=== PATIENT | female | born 1995 | race Caucasian/White ===

== ENCOUNTER 2018-07-18 15:33 | Emergency (ER) | END 2018-07-18 17:02 | disposition home or self-care (01) ==

== ENCOUNTER 2018-08-25 20:14 | Emergency (ER) | END 2018-08-26 00:11 | disposition home or self-care (01) ==

== ENCOUNTER 2018-10-05 22:23 | Emergency (ER) | payer BC, OTHER ==
[~2018-10-05] VITALS: Ht 154.9 cm; Wt 58.8 kg
[~2018-10-05 22:23] MED LIST: DICY10CA40 PO; IBUP-1542 PO; ONDA4TAB14 PO; PREN1TAB49 PO
[2018-10-05 22:26] VITALS: Ht 154.9 cm; Wt 58.8 kg
--- NOTE | 2018-10-06 03:04 | ERD ---
ER Documentation Chief Complaint Chief Complaint sent from for K+ 6.5 c/o chest pain and sob. HPI 23-year-old female was states that she was sent here by her PCP to recheck her potassium levels. Patient had blood drawn 6 days ago, and her potassium level was noted to be 6.5. She got a call from her PCP shortly before 10 PM tonight, was told to get her potassium level rechecked tonight. Patient states that she has history of frequent chest wall pain that gets worse with inspiration. Denies weakness or dizziness. Denies shortness of breath. Denies abdominal pain, nausea, vomiting, or diarrhea. ROS All systems reviewed and are negative except as per history of present illness. Medications Home Meds Active Scripts Ondansetron (Ondansetron Odt) 4 Mg Tab.rapdis, 4 MG PO Q6H PRN for NAUSEA AND/OR VOMITING, #10 TAB Prov:KELVIN DANIEL PA-C 08/25/18 Dicyclomine HCl (Dicyclomine HCl) 10 Mg Capsule, 10 MG PO TID PRN for ABDOMINAL CRAMPING, #20 CAP Prov:KELVIN DANIEL PA-C 08/25/18 Ibuprofen* (Motrin*) 600 Mg Tab, 600 MG PO Q6, #30 TAB Prov:CECI SANCHEZ PA-C 07/18/18 Reported Medications Vits W-Ca,Fe,Fa(<1MG) () 1 Tab Tablet, 1 TAB PO DAILY 09/01/12 Allergies Allergies: Coded Allergies: No Known Allergy (Unverified , 08/30/13) PMhx/Soc History of Surgery: No Anesthesia Reaction: No Hx Neurological Disorder: No Hx Respiratory Disorders: No Hx Cardiac Disorders: No Hx Psychiatric Problems: No Hx Miscellaneous Medical Probl: Yes (anxiety ) Hx Alcohol Use: No Hx Substance Use: No Hx Tobacco Use: No Smoking Status: Never smoker Physical Exam Vitals Vital Signs Date Temp Pulse Resp B/P (MAP) Pulse Ox O2 O2 Flow FiO2 Time Delivery Rate 10/06/18 98.0 72 18 99/70 (80) 98 Room Air 04:17 10/05/18 97.0 84 20 114/62 100 22:26 (79) Physical Exam General: Well-developed, well-nourished, conscious and coherent, in no distress Skin: Warm and dry without rash, good texture and turgor Head: Normocephalic without evidence of trauma Chest: Normal AP diameter. Good expansion without retractions. Nontender. Lungs are clear to auscultate bilaterally with good tidal volume Heart: Regular rate and rhythm. No murmur, rub, or gallops heard Abdomen: Soft and nontender without masses, guarding, or rebound. Bowel sounds are active. No hepatosplenomegaly Extremities: Full range of motion. Good strength bilaterally. No erythema, ecchymosis, or edema. Peripheral pulses are intact. Sensation intact Neuro: Alert and oriented 4, GCS 15. Result Diagram: 10/06/18 0301 Results 24 hrs Laboratory Tests Test 10/06/18 03:01 Sodium Level 142 mmol/L Potassium Level 4.1 mmol/L Chloride Level 106 mmol/L Carbon Dioxide Level 26 mmol/L Anion Gap 10 Blood Urea Nitrogen 15 mg/dl Creatinine 0.64 mg/dl Est Glomerular Filtrat Rate mL/min > 60 mL/min Glucose Level 93 mg/dl Calcium Level 9.6 mg/dl Procedures/MDM Patient presents the ED for recheck of her potassium levels. EKG: Normal sinus rhythm, rate 72 bpm, normal intervals, normal axis. No ST segment elevation or depression. No peak T waves. EKG read by Dr. Copeland. Her potassium level today is 4.1, well within the normal range. I suspect the elevated potassium level from her previous blood test is due to hemolyzed blood samples. Patient is informed of the testing results. Patient appears well, stable for discharge and outpatient management. Medical decision making shared with patient and family. Education provided to patient and family. Patient and family expressed understanding of the plan. Medications on discharge: None. Follow-up: Primary care provider in 2-3 days or return to ED if worse. Disclaimer: Inadvertent spelling and grammatical errors are likely due to EHR/dictation software use and do not reflect on the overall quality of patient care. Also, please note that the electronic time recorded on this note does not necessarily reflect the actual time of the patient encounter. Departure Diagnosis: Primary Impression: Hyperkalemia Condition: Stable CROW HUGGINS NP Oct 06, 2018 03:04
[2018-10-06 04:17] VITALS: BP 99/70; PULSE 72; RESP 18
== END 2018-10-06 04:19 | disposition home or self-care (01) ==
LOC: FTE 22:23
DX: E87.5 Hyperkalemia (principal); R40.2412 Glasgow coma scale score 13-15, at arrival to emergency department
CPT/HCPCS: 80048; 93005